=== PATIENT | male | born 1935 | race Caucasian/White ===

== ENCOUNTER 2021-08-27 08:23 | Emergency (ER) | payer MEDICARE, OTHER ==
[~2021-08-27] VITALS: Ht 170.2 cm; Wt 102.0 kg
[~2021-08-27 08:23] MED LIST: ASPI-1265 PO; TERA10CA4 PO
--- NOTE | 2021-08-27 13:00 | NUR ---
friend at bedside. pt ambulated with steady gait to/from restroom with friend. no distress.
[2021-08-27 13:52] LABS: BASOPHILS # (AUTO) 0.1 X10'3 (0-0.2); BASOPHILS % (AUTO) 0.8 % (0-1); EOSINOPHILS # (AUTO) 0.1 X10'3 (0-0.9); EOSINOPHILS % (AUTO) 1.6 % (0-6); HEMATOCRIT 39.9 % (42.0-52.0); HEMOGLOBIN 13.7 g/dl (14.0-17.9); LYMPHOCYTES # (AUTO) 1.9 X10'3 (1.1-4.8); LYMPHOCYTES % (AUTO) 25.9 % (21-51); MEAN CORPUSCULAR HEMOGLOBIN 30.9 PG (27.0-31.0); MEAN CORPUSCULAR HGB CONC 34.3 g/dL (33.0-36.5); MEAN CORPUSCULAR VOLUME 90.2 FL (78-98); MEAN PLATELET VOLUME 8.8 FL (7.4-10.4); MONOCYTES # (AUTO) 0.6 X10'3 (0-0.9); MONOCYTES % (AUTO) 8.2 % (2-12); NEUTROPHILS # (AUTO) 4.7 X10'3 (1.8-7.7); NEUTROPHILS % (AUTO) 63.5 % (42-75); PLATELET COUNT 160 X10'3 (140-440); RED BLOOD COUNT 4.42 X10'6 (4.70-6.10); RED CELL DISTRIBUTION WIDTH 12.7 % (11.5-14.5); WHITE BLOOD COUNT 7.3 X10'3 (4.5-11.0)
[2021-08-27 14:02] LABS: ALANINE AMINOTRANSFERASE 23 U/L (12-78); ALBUMIN 3.9 G/DL (3.4-5.0); ALBUMIN/GLOBULIN RATIO 1.1 (1.1-1.5); ALKALINE PHOSPHATASE 59 IU/L (46-116); ANION GAP 10 (8-16); ASPARTATE AMINO TRANSFERASE 19 U/L (10-37); BILIRUBIN,TOTAL 0.7 MG/DL (0.1-1.0); BLOOD UREA NITROGEN 12 MG/DL (7-18); BUN/CREATININE RATIO 13.2 (5.4-32.0); CALCIUM 9.2 MG/DL (8.5-10.1); CHLORIDE 106 MMOL/L (99-107); CREATININE 0.91 MG/DL (0.60-1.10); GLUCOSE 106 MG/DL (70-104); SODIUM 144 MMOL/L (135-145); TOTAL CARBON DIOXIDE 28.2 MMOL/L (24-32); TOTAL PROTEIN 7.3 G/DL (6.4-8.2); eGFR 79 ML/MIN
--- NOTE | 2021-08-27 15:20 | NUR ---
[employer] tech at bedside
--- NOTE | 2021-08-27 15:35 | NUR ---
updated family member on poc and pt status
--- NOTE | 2021-08-27 16:40 | NUR ---
provider at bedside
[2021-08-27 16:42] VITALS: BP 172/85
--- NOTE | 2021-08-27 16:49 | NUR ---
pt stood to dress, steady on feet.
== END 2021-08-27 17:12 | disposition home or self-care (01) ==
LOC: ER 08:23
DX: G62.9 Polyneuropathy, unspecified (principal); M54.32 Sciatica, left side; Z79.82 Long term (current) use of aspirin; Z79.899 Other long term (current) drug therapy
CPT/HCPCS: 36415; 80053; 85025; 85610; 93005; 93922; 93925; 93971; 99285